=== PATIENT | female | born 2000 | race Caucasian/White ===

== ENCOUNTER 2023-01-02 23:17 | Emergency (ER) | payer OTHER ==
[~2023-01-02] VITALS: Ht 162.6 cm; Wt 67.6 kg
[2023-01-02] MEDS ORDERED: ANTICONCEPTIVOS (23:29)
[2023-01-03] MEDS ORDERED: MORGIDOX100 MG PO (02:42)
[2023-01-03] MEDS ORDERED: MONISTAT 315 GM VAG (02:42)
== END 2023-01-03 03:10 | disposition home or self-care (01) ==
LOC: ER 23:17
DX: B37.31 Acute candidiasis of vulva and vagina (principal); L08.9 Local infection of the skin and subcutaneous tissue, unspecified